=== PATIENT | female | born 1930 | race Caucasian/White ===

== ENCOUNTER 2016-12-19 12:49 | Inpatient (IN) | payer OTHER, MEDICARE ==
[~2016-12-19] VITALS: Ht 157.5 cm; Wt 44.0 kg
[~2016-12-19 12:49] MED LIST: CLEOCIN300 MG PO; Cardizem CD,Cartia X PO; GLUCOPHAGE500 MG PO; LANOXIN,DIGIT0.25 MG PO; Lactinex,Floranex PO; Pradaxa PO; TIMOPTIC-0100 DROP/1 BOTH EYES; Tylenol Regular Stre PO; VITAMIN B12-FO1 EACH PO
[2016-12-19 13:42] LABS: ADD MIUA? YES; BILIRUBIN NEGATIVE; BLOOD SMALL; GLUCOSE (STRIP) 50; KETONES 5; LEUKOCYTES TRACE; NITRITE NEGATIVE; PROTEIN (STRIP) 100; SPECIFIC GRAVITY 1.006 (1.000-1.030); UROBILINOGEN 0.2 MG/DL (0.2-1.0)
[2016-12-19 13:43] LABS: COLOR PALE STRAW ((YELLOW))
[2016-12-19 13:46] LABS: BACTERIA RARE /HPF; EPITHELIAL CELLS RARE /HPF; HYALINE CASTS 0-5 /LPF; MUCUS TRACE /LPF; RED BLOOD CELLS 0-5 /HPF (0-5); UCUL ADDED? NO
[2016-12-19 14:27] LABS: EOSINOPHIL (%) 0.1 % (0-5); HEMATOCRIT 49.6 % (36.0-46.0); IMMATURE GRANULOCYTE (%) 0.2 % (0.0-0.7); INSTRUMENT ABS NEUTROPHIL CT 11.9 K/uL; LYMPHOCYTE COUNT 1.2 K/uL (1.0-2.8); MCH 31.4 PG (29.0-34.0); MCHC 33.5 G/DL (30.0-36.0); MCV 93.8 FL (83-99); MEAN PLAT.VOLUME 9.7 uM^3 (9.5-12.4); MONOCYTE (%) 6.2 % (3-12); MONOCYTE COUNT 0.9 K/uL (0-0.8); NEUTROPHIL (%) 84.8 % (45-76); NEUTROPHIL COUNT 11.9 K/uL (1.8-6.4); PLATELET COUNT 292 K/uL (156-360); RBC DIS.WIDTH-CV 12.7 % (11.8-14.6); RBC DIS.WIDTH-SD 43.8 % (39-53); RED BLOOD COUNT 5.29 M/uL (3.80-5.20); WHITE BLOOD COUNT 14.1 K/uL (4.1-10.2)
[2016-12-19 14:37] LABS: CHLORIDE 102 mEq/L (99-109); SODIUM 143 mEq/L (136-147)
[2016-12-19 14:38] LABS: GLUCOSE 158 mg/dL (70-99)
[2016-12-19 14:40] LABS: ANION GAP 13 MEQ/L (2-14)
[2016-12-19 14:42] LABS: GFR ESTIMATE (CALCULATED) > 59 mL/min/
[2016-12-19 14:43] LABS: UREA NITROGEN (BUN) 21 mg/dL (9-23)
[2016-12-19 14:45] LABS: INTER. NORMALIZED RATIO 1.1; PROTHROMBIN TIME 10.7 (9.2-11.2); PTT 27.7 (25-32)
[2016-12-19 14:52] LABS: TROP-I INTERPRETATION NEGATIVE; TROPONIN-I 0.03 ng/mL (0.0-0.30)
[2016-12-19] MEDS ORDERED: DILTIAZEM 24HR120 M2 PO (17:16)
[2016-12-19] MEDS ORDERED: CYANOCOBALAM1000 MCG PO (17:18)
[2016-12-19] MEDS ORDERED: TIMOPTIC-0100 DROP/1 BOTH EYES (17:19)
[2016-12-19] MEDS ORDERED: METFORMIN HCL1000 MG PO (17:19)
[2016-12-19] MEDS ORDERED: DIGOXIN125 MCG PO (17:19)
[2016-12-19] MEDS ORDERED: PRAVASTATIN SOD40 MG PO (17:20)
[2016-12-19] MEDS ORDERED: TYLENOL REGULA325 MG PO (17:20)
[2016-12-19] MEDS ORDERED: GLIPIZIDE XL5 MG PO (17:20)
[2016-12-19] MEDS ORDERED: VITAMIN D31000 UNI2 PO (17:21)
[2016-12-19] MEDS ORDERED: FISH OIL 1,0001 EAC7 PO (17:21)
[2016-12-20 11:45] LABS: MCH 31.2 PG (29.0-34.0); MCHC 32.9 G/DL (30.0-36.0); MCV 94.9 FL (83-99); MEAN PLAT.VOLUME 9.7 uM^3 (9.5-12.4); PLATELET COUNT 265 K/uL (156-360); RBC DIS.WIDTH-SD 45.4 % (39-53); RED BLOOD COUNT 5.06 M/uL (3.80-5.20); WHITE BLOOD COUNT 10.4 K/uL (4.1-10.2)
[2016-12-20 11:54] LABS: CHLORIDE 103 mEq/L (99-109); POTASSIUM 4.5 mEq/L (3.7-5.4); SODIUM 145 mEq/L (136-147)
[2016-12-20 11:56] LABS: GLUCOSE 146 mg/dL (70-99)
[2016-12-20 11:58] LABS: ANION GAP 12 MEQ/L (2-14); TOTAL BILIRUBIN 0.3 mg/dL (0.0-1.0)
[2016-12-20 12:00] LABS: ALKALINE PHOSPHATASE 60 IU/L (3-129); GFR ESTIMATE (CALCULATED) 56 mL/min/
[2016-12-20 12:01] LABS: UREA NITROGEN (BUN) 19 mg/dL (9-23)
[2016-12-20 12:23] LABS: POINT-OF-CARE METER ID UU13113702
[2016-12-20 13:10] VITALS: BP 171/79
[2016-12-20 14:56] VITALS: BP 185/87
[2016-12-20 20:00] VITALS: BP 156/75
[2016-12-21 00:02] VITALS: BP 144/73
[2016-12-21 04:16] VITALS: BP 122/69
[2016-12-21 07:20] LABS: EOSINOPHIL (%) 1.1 % (0-5); EOSINOPHIL COUNT 0.1 K/uL (0-0.3); HEMATOCRIT 48.1 % (36.0-46.0); IMMATURE GRANULOCYTE (%) 0.4 % (0.0-0.7); INSTRUMENT ABS NEUTROPHIL CT 6.3 K/uL; LYMPHOCYTE COUNT 2.1 K/uL (1.0-2.8); MCH 31.8 PG (29.0-34.0); MCHC 33.3 G/DL (30.0-36.0); MCV 95.6 FL (83-99); MEAN PLAT.VOLUME 9.9 uM^3 (9.5-12.4); MONOCYTE (%) 9.8 % (3-12); MONOCYTE COUNT 0.9 K/uL (0-0.8); NEUTROPHIL (%) 66.8 % (45-76); NEUTROPHIL COUNT 6.3 K/uL (1.8-6.4); PLATELET COUNT 265 K/uL (156-360); RBC DIS.WIDTH-CV 13.2 % (11.8-14.6); RBC DIS.WIDTH-SD 46.6 % (39-53); RED BLOOD COUNT 5.03 M/uL (3.80-5.20); WHITE BLOOD COUNT 9.5 K/uL (4.1-10.2)
[2016-12-21 07:43] LABS: ALKALINE PHOSPHATASE 58 IU/L (3-129); ANION GAP 12 MEQ/L (2-14); CHLORIDE 103 MEQ/L (99-109); GFR ESTIMATE (CALCULATED) > 59 mL/min/; GLUCOSE 145 mg/dL (70-99); POTASSIUM 3.9 MEQ/L (3.7-5.4); SAMPLE HEMOLYSIS CHECK 0; SAMPLE ICTERIC CHECK 0; SAMPLE LIPEMIA CHECK 0; SODIUM 143 MEQ/L (136-147); TOTAL BILIRUBIN 0.4 MG/DL (0.0-1.0); UREA NITROGEN (BUN) 23 mg/dL (9-23)
[2016-12-21 09:00] VITALS: BP 154/71
[2016-12-21 12:00] VITALS: BP 162/73
[2016-12-21 17:00] VITALS: BP 170/71
[2016-12-21 19:30] VITALS: BP 146/85
[2016-12-22 02:20] VITALS: BP 145/70
[2016-12-22 04:20] VITALS: BP 138/69
[2016-12-22 05:52] LABS: HEMATOCRIT 48.2 % (36.0-46.0); MCH 31.1 PG (29.0-34.0); MCHC 32.4 G/DL (30.0-36.0); MCV 96.2 FL (83-99); MEAN PLAT.VOLUME 9.9 uM^3 (9.5-12.4); PLATELET COUNT 305 K/uL (156-360); RBC DIS.WIDTH-CV 13.2 % (11.8-14.6); RBC DIS.WIDTH-SD 46.6 % (39-53); RED BLOOD COUNT 5.01 M/uL (3.80-5.20); WHITE BLOOD COUNT 9.3 K/uL (4.1-10.2)
[2016-12-22 06:29] LABS: ANION GAP 9 MEQ/L (2-14); CHLORIDE 102 MEQ/L (99-109); GFR ESTIMATE (CALCULATED) > 59 mL/min/; GLUCOSE 149 mg/dL (70-99); POTASSIUM 4.1 MEQ/L (3.7-5.4); SAMPLE HEMOLYSIS CHECK 0; SAMPLE ICTERIC CHECK 0; SAMPLE LIPEMIA CHECK 0; SODIUM 142 MEQ/L (136-147); UREA NITROGEN (BUN) 27 mg/dL (9-23)
[2016-12-22 13:00] LABS: POINT-OF-CARE METER ID UU13113781
[2016-12-22 15:12] VITALS: BP 122/76
[2016-12-22 19:51] VITALS: BP 134/64
[2016-12-22 23:20] LABS: POINT-OF-CARE METER ID UU13113781; POINT-OF-CARE USER ID STWHLR41
[2016-12-23] VITALS (7 sets, daily range): BP systolic 132–169; BP diastolic 63–78
[2016-12-23 07:09] LABS: EOSINOPHIL (%) 1.2 % (0-5); EOSINOPHIL COUNT 0.1 K/uL (0-0.3); IMMATURE GRANULOCYTE (%) 0.2 % (0.0-0.7); LYMPHOCYTE COUNT 2.1 K/uL (1.0-2.8); MCH 31.2 PG (29.0-34.0); MCHC 32.7 G/DL (30.0-36.0); MCV 95.5 FL (83-99); MEAN PLAT.VOLUME 9.7 uM^3 (9.5-12.4); MONOCYTE (%) 8.1 % (3-12); MONOCYTE COUNT 0.7 K/uL (0-0.8); NEUTROPHIL (%) 66.6 % (45-76); PLATELET COUNT 278 K/uL (156-360); RBC DIS.WIDTH-SD 46.2 % (39-53); RED BLOOD COUNT 4.71 M/uL (3.80-5.20); WHITE BLOOD COUNT 8.9 K/uL (4.1-10.2)
[2016-12-23 07:36] LABS: ALKALINE PHOSPHATASE 62 IU/L (3-129); ANION GAP 9 MEQ/L (2-14); CHLORIDE 104 MEQ/L (99-109); GFR ESTIMATE (CALCULATED) 56 mL/min/; GLUCOSE 146 mg/dL (70-99); POTASSIUM 4.3 MEQ/L (3.7-5.4); SAMPLE HEMOLYSIS CHECK 0; SAMPLE ICTERIC CHECK 0; SAMPLE LIPEMIA CHECK 0; SODIUM 141 MEQ/L (136-147); UREA NITROGEN (BUN) 37 mg/dL (9-23)
[2016-12-23 07:38] LABS: TOTAL BILIRUBIN 0.5 MG/DL (0.0-1.0)
[2016-12-24 03:15] VITALS: BP 161/73
[2016-12-24 05:49] LABS: EOSINOPHIL (%) 1.9 % (0-5); EOSINOPHIL COUNT 0.2 K/uL (0-0.3); IMMATURE GRANULOCYTE (%) 0.3 % (0.0-0.7); INSTRUMENT ABS NEUTROPHIL CT 5.6 K/uL; LYMPHOCYTE COUNT 2.2 K/uL (1.0-2.8); MCH 31.7 PG (29.0-34.0); MCV 96.1 FL (83-99); MEAN PLAT.VOLUME 10.5 uM^3 (9.5-12.4); MONOCYTE (%) 8.9 % (3-12); MONOCYTE COUNT 0.8 K/uL (0-0.8); NEUTROPHIL (%) 63.6 % (45-76); NEUTROPHIL COUNT 5.6 K/uL (1.8-6.4); PLATELET COUNT 266 K/uL (156-360); RBC DIS.WIDTH-CV 13.1 % (11.8-14.6); RBC DIS.WIDTH-SD 46.5 % (39-53); RED BLOOD COUNT 4.58 M/uL (3.80-5.20); WHITE BLOOD COUNT 8.9 K/uL (4.1-10.2)
[2016-12-24 07:54] VITALS: BP 181/77
[2016-12-24] MEDS ORDERED: GLIPIZIDE5 MG PO (08:16)
[2016-12-24] MEDS ORDERED: ZIPRASIDONE HCL20 MG PO (08:16)
[2016-12-24] MEDS ORDERED: AUGMENTIN875 MG PO (08:16)
[2016-12-24] MEDS ORDERED: ASPIR-LOW81 MG PO (08:16)
[2016-12-24 12:30] VITALS: BP 179/81
[2016-12-24 16:00] VITALS: BP 164/71
[2016-12-24 20:20] VITALS: BP 150/68
[2016-12-24 22:36] VITALS: BP 182/81
[2016-12-25 07:20] VITALS: BP 164/77
[2016-12-25 15:41] VITALS: BP 158/72
[2016-12-25 20:57] VITALS: BP 188/88
[2016-12-26 07:00] LABS: EOSINOPHIL (%) 2.2 % (0-5); EOSINOPHIL COUNT 0.2 K/uL (0-0.3); HEMATOCRIT 44.1 % (36.0-46.0); IMMATURE GRANULOCYTE (%) 0.4 % (0.0-0.7); INSTRUMENT ABS NEUTROPHIL CT 5.9 K/uL; LYMPHOCYTE COUNT 2.4 K/uL (1.0-2.8); MCH 32.3 PG (29.0-34.0); MCHC 33.6 G/DL (30.0-36.0); MCV 96.3 FL (83-99); MEAN PLAT.VOLUME 10.2 uM^3 (9.5-12.4); MONOCYTE COUNT 1.1 K/uL (0-0.8); NEUTROPHIL (%) 61.1 % (45-76); NEUTROPHIL COUNT 5.9 K/uL (1.8-6.4); PLATELET COUNT 298 K/uL (156-360); RBC DIS.WIDTH-CV 12.9 % (11.8-14.6); RBC DIS.WIDTH-SD 46.1 % (39-53); RED BLOOD COUNT 4.58 M/uL (3.80-5.20); WHITE BLOOD COUNT 9.7 K/uL (4.1-10.2)
[2016-12-26 07:20] VITALS: BP 143/72
[2016-12-26 07:25] LABS: ALKALINE PHOSPHATASE 67 IU/L (3-129); ANION GAP 9 MEQ/L (2-14); CHLORIDE 103 MEQ/L (99-109); GFR ESTIMATE (CALCULATED) > 59 mL/min/; GLUCOSE 125 mg/dL (70-99); POTASSIUM 4.2 MEQ/L (3.7-5.4); SAMPLE HEMOLYSIS CHECK 0; SAMPLE ICTERIC CHECK 0; SAMPLE LIPEMIA CHECK 0; SODIUM 145 MEQ/L (136-147); UREA NITROGEN (BUN) 26 mg/dL (9-23)
[2016-12-26 07:28] LABS: TOTAL BILIRUBIN 0.3 MG/DL (0.0-1.0)
[2016-12-26 11:15] VITALS: BP 134/77
[2016-12-26 15:10] VITALS: BP 146/65
[2016-12-26 22:38] VITALS: BP 139/78
[2016-12-27 03:43] VITALS: BP 151/78
[2016-12-27 07:22] VITALS: BP 172/80
[2016-12-27 11:38] VITALS: BP 177/86
[2016-12-27 15:44] VITALS: BP 142/77
[2016-12-27 19:46] VITALS: BP 136/60
[2016-12-28 01:30] VITALS: BP 134/81
[2016-12-28 06:40] LABS: EOSINOPHIL (%) 2.6 % (0-5); EOSINOPHIL COUNT 0.2 K/uL (0-0.3); HEMATOCRIT 41.8 % (36.0-46.0); IMMATURE GRANULOCYTE (%) 0.5 % (0.0-0.7); INSTRUMENT ABS NEUTROPHIL CT 5.3 K/uL; LYMPHOCYTE COUNT 2.4 K/uL (1.0-2.8); MCH 31.9 PG (29.0-34.0); MCV 96.8 FL (83-99); MEAN PLAT.VOLUME 10.2 uM^3 (9.5-12.4); MONOCYTE (%) 8.3 % (3-12); MONOCYTE COUNT 0.7 K/uL (0-0.8); NEUTROPHIL (%) 60.9 % (45-76); NEUTROPHIL COUNT 5.3 K/uL (1.8-6.4); PLATELET COUNT 276 K/uL (156-360); RBC DIS.WIDTH-CV 12.8 % (11.8-14.6); RBC DIS.WIDTH-SD 45.6 % (39-53); RED BLOOD COUNT 4.32 M/uL (3.80-5.20); WHITE BLOOD COUNT 8.8 K/uL (4.1-10.2)
[2016-12-28 06:59] LABS: ALKALINE PHOSPHATASE 58 IU/L (3-129); ANION GAP 8 MEQ/L (2-14); CHLORIDE 110 MEQ/L (99-109); GFR ESTIMATE (CALCULATED) > 59 mL/min/; GLUCOSE 118 mg/dL (70-99); POTASSIUM 3.8 MEQ/L (3.7-5.4); SAMPLE HEMOLYSIS CHECK 0; SAMPLE ICTERIC CHECK 0; SAMPLE LIPEMIA CHECK 0; SODIUM 144 MEQ/L (136-147); TOTAL BILIRUBIN 0.3 MG/DL (0.0-1.0); UREA NITROGEN (BUN) 22 mg/dL (9-23)
[2016-12-28 07:28] VITALS: BP 148/88
[2016-12-28 12:09] VITALS: BP 142/67
[2016-12-28 17:52] VITALS: BP 146/72
[2016-12-28 20:07] VITALS: BP 133/80
[2016-12-29 00:21] VITALS: BP 142/82
[2016-12-29 04:52] VITALS: BP 150/84
[2016-12-29 06:56] LABS: POINT-OF-CARE METER ID UU13113725
[2016-12-29 07:00] VITALS: BP 160/80
[2016-12-29 11:41] VITALS: BP 139/67
[2016-12-29 16:31] VITALS: BP 176/77
[2016-12-29 20:00] VITALS: BP 160/78
[2016-12-30] VITALS: BP 158/71
[2016-12-30 04:00] VITALS: BP 168/74
[2016-12-30 06:15] LABS: HEMATOCRIT 39.9 % (36.0-46.0); MCH 30.8 PG (29.0-34.0); MCHC 32.6 G/DL (30.0-36.0); MCV 94.5 FL (83-99); MEAN PLAT.VOLUME 9.7 uM^3 (9.5-12.4); PLATELET COUNT 276 K/uL (156-360); RBC DIS.WIDTH-CV 12.5 % (11.8-14.6); RBC DIS.WIDTH-SD 43.5 % (39-53); RED BLOOD COUNT 4.22 M/uL (3.80-5.20); WHITE BLOOD COUNT 7.8 K/uL (4.1-10.2)
[2016-12-30 06:37] LABS: ANION GAP 10 MEQ/L (2-14); CHLORIDE 103 MEQ/L (99-109); GFR ESTIMATE (CALCULATED) > 59 mL/min/; GLUCOSE 93 mg/dL (70-99); POTASSIUM 3.9 MEQ/L (3.7-5.4); SAMPLE HEMOLYSIS CHECK 0; SAMPLE ICTERIC CHECK 0; SAMPLE LIPEMIA CHECK 0; SODIUM 142 MEQ/L (136-147); UREA NITROGEN (BUN) 17 mg/dL (9-23)
[2016-12-30 08:11] VITALS: BP 183/87
[2016-12-30 12:03] VITALS: BP 151/70
[2016-12-30 15:44] VITALS: BP 127/79
[2016-12-30 23:22] VITALS: BP 159/96
[2016-12-31 08:00] VITALS: BP 154/75
[2016-12-31 15:48] VITALS: BP 146/82
[2017-01-01 00:01] VITALS: BP 182/79
[2017-01-01 00:35] VITALS: BP 144/70
[2017-01-01 06:34] LABS: EOSINOPHIL (%) 2.4 % (0-5); EOSINOPHIL COUNT 0.2 K/uL (0-0.3); HEMATOCRIT 42.8 % (36.0-46.0); IMMATURE GRANULOCYTE (%) 0.4 % (0.0-0.7); INSTRUMENT ABS NEUTROPHIL CT 5.4 K/uL; LYMPHOCYTE COUNT 1.9 K/uL (1.0-2.8); MCH 30.9 PG (29.0-34.0); MCV 96.4 FL (83-99); MEAN PLAT.VOLUME 9.9 uM^3 (9.5-12.4); MONOCYTE (%) 7.4 % (3-12); MONOCYTE COUNT 0.6 K/uL (0-0.8); NEUTROPHIL (%) 66.5 % (45-76); NEUTROPHIL COUNT 5.4 K/uL (1.8-6.4); PLATELET COUNT 292 K/uL (156-360); RBC DIS.WIDTH-SD 45.8 % (39-53); RED BLOOD COUNT 4.44 M/uL (3.80-5.20); WHITE BLOOD COUNT 8.1 K/uL (4.1-10.2)
[2017-01-01] MEDS ORDERED: LOSARTAN POTASS50 MG PO (07:10)
[2017-01-01] MEDS ORDERED: DOCUSATE SODIU100 MG PO (07:10)
[2017-01-01 07:28] LABS: ALKALINE PHOSPHATASE 56 IU/L (3-129); ANION GAP 11 MEQ/L (2-14); CHLORIDE 108 MEQ/L (99-109); GFR ESTIMATE (CALCULATED) 56 mL/min/; GLUCOSE 100 mg/dL (70-99); SAMPLE HEMOLYSIS CHECK 0; SAMPLE ICTERIC CHECK 0; SAMPLE LIPEMIA CHECK 0; SODIUM 145 MEQ/L (136-147); UREA NITROGEN (BUN) 21 mg/dL (9-23)
[2017-01-01 07:30] LABS: TOTAL BILIRUBIN 0.2 MG/DL (0.0-1.0)
[2017-01-01 08:35] VITALS: BP 183/82
[2017-01-01 15:00] VITALS: BP 165/72
[2017-01-01 23:15] VITALS: BP 135/79
[2017-01-02 08:00] VITALS: BP 166/80
[2017-01-02 16:01] VITALS: BP 157/76
== END 2017-01-02 18:41 | DRG 690 ==
LOC: EME 12:49 → 5EAST 16:10 → EDOF 16:10 → 4EAST 16:10 → 5EAST 12-24 22:24
PROVIDERS: Emergency Medicine; Nurse Practitioner Adult Health; Pediatrics; Physician Assistant
DX: N39.0 Urinary tract infection, site not specified (principal); F05 Delirium due to known physiological condition; I47.2 Ventricular tachycardia; E11.9 Type 2 diabetes mellitus without complications; E78.5 Hyperlipidemia, unspecified; Z60.2 Problems related to living alone; I48.2 Chronic atrial fibrillation; G30.1 Alzheimer's disease with late onset; F02.80 Dementia in other diseases classified elsewhere, unspecified severity, without behavioral disturbance, psychotic disturbance, mood disturbance, and anxiety; I10 Essential (primary) hypertension; I49.5 Sick sinus syndrome; K59.00 Constipation, unspecified; G44.1 Vascular headache, not elsewhere classified; N35.9 Urethral stricture, unspecified; R32 Unspecified urinary incontinence; R29.6 Repeated falls; Z79.82 Long term (current) use of aspirin; Z91.81 History of falling; Z79.84 Long term (current) use of oral hypoglycemic drugs
CPT/HCPCS: 70450; 70551; 71010; 73502; 74020; 80048; 80053; 80069; 81003; 82948; 84443; 84484; 85025; 85027; 85610; 85651; 85730; 87086; 93005; 93306; 97530 GP; 99281; 99285; J0696; J2060; J7030; J7050

== ENCOUNTER 2017-02-27 10:33 | Emergency (ER) | payer OTHER, MEDICARE ==
[~2017-02-27] VITALS: Ht 154.9 cm; Wt 44.1 kg
[~2017-02-27 10:33] MED LIST changes: +ASPIR-LOW81 MG PO; +AUGMENTIN875 MG PO; +CYANOCOBALAM1000 MCG PO; +DIGOXIN125 MCG PO; +DILTIAZEM 24HR120 M2 PO; +DOCUSATE SODIU100 MG PO; +FISH OIL 1,0001 EAC7 PO; +GLIPIZIDE XL5 MG PO; +GLIPIZIDE5 MG PO; +LOSARTAN POTASS50 MG PO; +METFORMIN HCL1000 MG PO; +PRAVASTATIN SOD40 MG PO; +TYLENOL REGULA325 MG PO; +VITAMIN D31000 UNI2 PO; +ZIPRASIDONE HCL20 MG PO
[2017-02-27] MEDS ORDERED: TRAZODONE HCL50 MG PO (11:07)
[2017-02-27] MEDS ORDERED: DEPAKOTE SPRIN125 MG PO (11:09)
[2017-02-27 13:14] LABS: EOSINOPHIL (%) 0.6 % (0-5); EOSINOPHIL COUNT 0.1 K/uL (0-0.3); HEMATOCRIT 46.8 % (36.0-46.0); IMMATURE GRANULOCYTE (%) 0.7 % (0.0-0.7); IMMATURE GRANULOCYTE COUNT 0.1 K/uL; INSTRUMENT ABS NEUTROPHIL CT 10.9 K/uL; LYMPHOCYTE COUNT 1.5 K/uL (1.0-2.8); MCH 31.1 PG (29.0-34.0); MCHC 31.8 G/DL (30.0-36.0); MCV 97.7 FL (83-99); MEAN PLAT.VOLUME 9.7 uM^3 (9.5-12.4); MONOCYTE (%) 5.9 % (3-12); MONOCYTE COUNT 0.8 K/uL (0-0.8); NEUTROPHIL (%) 81.8 % (45-76); NEUTROPHIL COUNT 10.9 K/uL (1.8-6.4); PLATELET COUNT 267 K/uL (156-360); RBC DIS.WIDTH-CV 13.1 % (11.8-14.6); RBC DIS.WIDTH-SD 46.8 % (39-53); RED BLOOD COUNT 4.79 M/uL (3.80-5.20); WHITE BLOOD COUNT 13.4 K/uL (4.1-10.2)
[2017-02-27 13:31] LABS: PROTHROMBIN TIME 10.9 SEC (10.2-12.9)
[2017-02-27 13:36] LABS: CHLORIDE 103 mEq/L (99-109); POTASSIUM 4.6 mEq/L (3.7-5.4); SODIUM 144 mEq/L (136-147)
[2017-02-27 13:37] LABS: GLUCOSE 129 mg/dL (70-99)
[2017-02-27 13:39] LABS: ANION GAP 11 MEQ/L (2-14)
[2017-02-27 13:41] LABS: GFR ESTIMATE (CALCULATED) > 59 mL/min/
[2017-02-27 13:42] LABS: UREA NITROGEN (BUN) 25 mg/dL (9-23)
[2017-02-27 15:55] VITALS: BP 188/83
== END 2017-02-27 16:00 ==
LOC: EME → EDBD 10:33 → EME 10:33
PROVIDERS: Emergency Medicine
PROC: 3E0234Z Introduction of Serum, Toxoid and Vaccine into Muscle, Percutaneous Approach (ICD-10-PCS; principal; 2017-02-27)
DX: S00.03XA Contusion of scalp, initial encounter (principal); W18.30XA Fall on same level, unspecified, initial encounter; Z23 Encounter for immunization; F02.80 Dementia in other diseases classified elsewhere, unspecified severity, without behavioral disturbance, psychotic disturbance, mood disturbance, and anxiety; G30.9 Alzheimer's disease, unspecified; I10 Essential (primary) hypertension; E78.5 Hyperlipidemia, unspecified; E11.9 Type 2 diabetes mellitus without complications; Z79.84 Long term (current) use of oral hypoglycemic drugs
CPT/HCPCS: 70450; 72125; 80048; 81003; 85025; 85610; 99281; 99285

== ENCOUNTER 2017-10-02 18:12 | Emergency (ER) | payer OTHER, MEDICARE ==
[~2017-10-02] VITALS: Ht 152.4 cm; Wt 58.2 kg
[~2017-10-02 18:12] MED LIST changes: +DEPAKOTE SPRIN125 MG PO; +TRAZODONE HCL50 MG PO
[2017-10-02 19:42] LABS: HEMATOCRIT 41.9 % (36.0-46.0); HEMOGLOBIN 13.9 G/DL (11.9-15.5); MCH 32.5 PG (29.0-34.0); MCHC 33.2 G/DL (30.0-36.0); MCV 97.9 FL (83-99); PLATELET COUNT 217 K/uL (156-360); RBC DIS.WIDTH-CV 12.9 % (11.8-14.6); RBC DIS.WIDTH-SD 46.5 % (39-53); RED BLOOD COUNT 4.28 M/uL (3.80-5.20); WHITE BLOOD COUNT 7.2 K/uL (4.1-10.2)
[2017-10-02 19:59] LABS: ALBUMIN 4.2 g/dL (3.2-4.8); CHLORIDE 101 mEq/L (99-109); POTASSIUM 4.9 mEq/L (3.7-5.4); SODIUM 138 mEq/L (136-147)
[2017-10-02 20:02] LABS: GLUCOSE 269 mg/dL (70-99); TOTAL PROTEIN 7.1 g/dL (6.4-8.3)
[2017-10-02 20:04] LABS: TOTAL BILIRUBIN 0.1 mg/dL (0.0-1.0)
[2017-10-02 20:05] LABS: ALKALINE PHOSPHATASE 72 IU/L (3-129); CREATININE 1.1 mg/dL (0.6-1.3); GFR ESTIMATE (CALCULATED) 50 mL/min/
[2017-10-02 20:06] LABS: UREA NITROGEN (BUN) 33 mg/dL (9-23)
[2017-10-02 20:07] LABS: AST (GOT) 13 IU/L (2-34)
[2017-10-02 20:08] LABS: ALT (GPT) 10 IU/L (3-49)
[2017-10-02 22:31] VITALS: BP 183/60
== END 2017-10-02 22:34 | disposition home or self-care (01) ==
LOC: EME 18:12
DX: Z03.89 Encounter for observation for other suspected diseases and conditions ruled out (principal); G30.9 Alzheimer's disease, unspecified; F02.80 Dementia in other diseases classified elsewhere, unspecified severity, without behavioral disturbance, psychotic disturbance, mood disturbance, and anxiety
CPT/HCPCS: 80048 91; 80053; 81003; 85027; 93005; 99281; 99284